=== PATIENT | male | born 1950 | race Caucasian/White ===

== ENCOUNTER 2018-01-21 14:41 | Inpatient (IN) | payer MEDICARE, OTHER ==
[~2018-01-21] VITALS: Ht 177.8 cm; Wt 84.2 kg
[~2018-01-21 14:41] MED LIST: APIX5TAB PO; ASCO100019 PO; ASPI325T80 PO; FLEC100T PO; METO25TA35 PO
[2018-01-21] MEDS ORDERED: SOTA120T26 PO (14:55)
[2018-01-21] MEDS ORDERED: ASPI325T17 PO (14:55)
[2018-01-21 16:48] LABS: BASOPHILS # (AUTO) 0.06 x10^3/uL (0-0.1); BASOPHILS % (AUTO) 1 % (0-1); EOSINOPHILS # (AUTO) 0.17 x10^3/uL (0-0.4); EOSINOPHILS % (AUTO) 2 % (1-7); LYMPHOCYTES # (AUTO) 1.43 x10^3/uL (1-3.4); LYMPHOCYTES % (AUTO) 15 % (22-44); MD NO; MEAN CORPUSCULAR HEMOGLOBIN 31.3 pg (27.5-34.5); MEAN CORPUSCULAR HGB CONC 33.7 g/dL (33.2-36.2); MEAN CORPUSCULAR VOLUME 92.7 fL (81-97); MEAN PLATELET VOLUME 8.8 fL (7.4-10.4); MONOCYTES # (AUTO) 0.55 x10^3/uL (0.2-0.8); MONOCYTES % (AUTO) 6 % (2-9); NEUTROPHILS # (AUTO) 7.16 x10^3/uL (1.8-6.8); NEUTROPHILS % (AUTO) 77 % (42-75); PLATELET COUNT 170 x10^3/uL (130-400); RED BLOOD COUNT 4.48 x10^6/uL (4.38-5.82); RED CELL DISTRIBUTION WIDTH 13.1 % (9.4-14.8)
[2018-01-21 16:54] LABS: INTERNATIONAL NORMALIZED RATIO 1.07 (0.93-1.1); PROTHROMBIN TIME 11.1 Seconds (9.6-11.5)
[2018-01-21 16:58] LABS: ALBUMIN 3.6 g/dL (3.4-5.0); ANION GAP 6 mmol/L (5-15); CALCIUM 9.6 mg/dL (8.5-10.1); CHLORIDE 109 mmol/L (98-107); CREATININE 1.15 mg/dL (0.7-1.3)
[2018-01-21] MEDS ORDERED: NS + 20MEQ KCL 1,000 ML IV SCH (17:39)
[2018-01-21] MEDS ORDERED: morphine SULFATE 10 MG/ML, 1ML IVPush PRN (18:00)
[2018-01-21] MEDS ORDERED: DOCUSATE 100 MG CAPSULE PO PRN (18:00)
[2018-01-21] MEDS ORDERED: BISACODYL 10 MG SUPP PR PRN ×2 (18:00→21:00)
[2018-01-21] MEDS ORDERED: ONDANSETRON ODT 4 MG PO PRN (18:00)
[2018-01-21] MEDS ORDERED: TRAZODONE 50MG TABLET PO PRN (18:00)
[2018-01-21] MEDS ORDERED: hydrALAzine 20 MG/ML, 1ML IVPush PRN (18:00)
[2018-01-21] MEDS ORDERED: ONDANSETRON 2MG/ML, 2ML IVPush PRN (18:00)
[2018-01-21] MEDS ORDERED: POLYETHYLENE GLYCOL 17 GM PACKET PO PRN (18:00)
[2018-01-21] MEDS ORDERED: LABETALOL 5MG/ML, 20ML IVPush PRN (18:00)
[2018-01-21] MEDS ORDERED: HYDROcodone/APAP 5/325 TABLET PO PRN ×2 (18:00→21:00)
[2018-01-21] MEDS ORDERED: MIDAZOLAM 1 MG/ML, 2ML ONE (18:02)
[2018-01-21] MEDS ORDERED: FENTANYL PF 250 MCG/5ML ONE (18:04)
[2018-01-21 18:09] LABS: FREE T4 (FREE THYROXINE) 0.85 ng/dL (0.76-1.46); THYROID STIMULATING HORMONE 0.72 mIU/L (0.358-3.740)
[2018-01-21] MEDS ORDERED: METOPROLOL 1 MG/ML, 5ML ONE (18:13)
[2018-01-21] MEDS ORDERED: PROPOFOL 10 MG/ML, 20ML ONE (18:13)
[2018-01-21] MEDS ORDERED: ROCURONIUM 10 MG/ML,10ML ONE (18:13)
[2018-01-21] MEDS ORDERED: ONDANSETRON 2MG/ML, 2ML ONE (18:13)
[2018-01-21] MEDS ORDERED: EPHEDRINE 50 MG/ML, 1ML ONE (18:13)
[2018-01-21] MEDS ORDERED: PHENYLEPHRINE 10 MG/ML ONE (18:13)
[2018-01-21] MEDS ORDERED: CEFAZOLIN 1,000 MG ONE (18:13)
[2018-01-21] MEDS ORDERED: SUCCINYLCHOLINE 20 MG/ML, 10ML ONE (18:13)
[2018-01-21] MEDS ORDERED: MEPERIDINE/PF 25MG/0.5ML IVPush PRN (19:00)
[2018-01-21] MEDS ORDERED: PROMETHAZINE 12.5 MG SUPP PR PRN (19:00)
[2018-01-21] MEDS ORDERED: hydrALAzine 20 MG/ML, 1ML IV PRN (19:00)
[2018-01-21] MEDS ORDERED: ACETAMINOPHEN 325 MG TABLET PO PRN ×2 (19:00→21:00)
[2018-01-21] MEDS ORDERED: HYDROmorphone 1 MG/ML, 1ML IV PRN ×2 (19:00→21:00)
[2018-01-21] MEDS ORDERED: LORazepam 2 MG/ML, 1ML IVPush PRN (19:00)
[2018-01-21] MEDS ORDERED: morphine SULFATE 10 MG/ML, 1ML IV PRN (19:00)
[2018-01-21] MEDS ORDERED: FENTANYL PF 100 MCG/2ML IV PRN (19:00)
[2018-01-21] MEDS ORDERED: LABETALOL 5MG/ML, 20ML IV PRN (19:00)
[2018-01-21] MEDS ORDERED: OXYcodone 5 MG/5 ML ORAL.SOL UDC PO PRN (19:00)
[2018-01-21] MEDS ORDERED: ACETAMINOPHEN 650 MG/20.3 ML UDC ONE (19:45)
[2018-01-21] MEDS ORDERED: OXYcodone 5 MG/5 ML ORAL.SOL UDC ONE (19:45)
[2018-01-21] MEDS: SODIUM CHLORIDE FLUSH 10ML SYR IVF SCH (21:00)
[2018-01-21] MEDS ORDERED: ALUMINUM/MAG/SIMETHICONE 30 ML UDC PO PRN (21:00)
[2018-01-21] MEDS ORDERED: CEFAZOLIN PMX 2GM/100ML 100 ML IVPB SCH (21:00)
[2018-01-21] MEDS ORDERED: MAGNESIUM HYDROXIDE 8%, 30ML UDC PO PRN (21:00)
[2018-01-21] MEDS ORDERED: SENNA/DOCUSATE TABLET PO PRN (21:00)
[2018-01-21] MEDS ORDERED: ONDANSETRON 2MG/ML, 2ML IV PRN (21:00)
[2018-01-21] MEDS ORDERED: DIPHENHYDRAMINE 25 MG CAPSULE PO PRN (21:00)
[2018-01-21] MEDS: D5%-LACTATED RINGERS 1,000 ML IV SCH (22:34)
[2018-01-21] MEDS: DOCUSATE 100 MG CAPSULE PO SCH (22:36)
[2018-01-21] MEDS: SOTALOL 120MG TABLET PO SCH (22:36)
[2018-01-21] MEDS: FAMOTIDINE 20 MG TABLET PO SCH (22:38)
[2018-01-22 00:33] VITALS: BP 102/69
[2018-01-22] MEDS: CEFAZOLIN PMX 2GM/50ML 50 ML IVPB SCH ×2 (01:26→10:37)
[2018-01-22 04:09] VITALS: BP 100/62
[2018-01-22] MEDS: OXYcodone/APAP 5/325MG TABLET PO PRN ×2 (04:32→19:09)
[2018-01-22 06:07] LABS: BASOPHILS # (AUTO) 0.02 x10^3/uL (0-0.1); BASOPHILS % (AUTO) 0 % (0-1); EOSINOPHILS % (AUTO) 0 % (1-7); LYMPHOCYTES # (AUTO) 1.24 x10^3/uL (1-3.4); LYMPHOCYTES % (AUTO) 15 % (22-44); MD NO; MEAN CORPUSCULAR HEMOGLOBIN 31.8 pg (27.5-34.5); MEAN CORPUSCULAR HGB CONC 34.2 g/dL (33.2-36.2); MEAN PLATELET VOLUME 8.9 fL (7.4-10.4); MONOCYTES # (AUTO) 0.61 x10^3/uL (0.2-0.8); MONOCYTES % (AUTO) 7 % (2-9); NEUTROPHILS # (AUTO) 6.68 x10^3/uL (1.8-6.8); NEUTROPHILS % (AUTO) 78 % (42-75); PLATELET COUNT 151 x10^3/uL (130-400); RED BLOOD COUNT 4.02 x10^6/uL (4.38-5.82); RED CELL DISTRIBUTION WIDTH 12.9 % (9.4-14.8)
[2018-01-22 06:14] LABS: ANION GAP 6 mmol/L (5-15); CALCIUM 8.7 mg/dL (8.5-10.1); CHLORIDE 107 mmol/L (98-107)
[2018-01-22 06:15] LABS: CREATININE 1.12 mg/dL (0.7-1.3)
[2018-01-22] MEDS: D5%-LACTATED RINGERS 1,000 ML IV SCH ×3 (07:16→23:00)
[2018-01-22 07:56] VITALS: BP 108/66
[2018-01-22] MEDS: FAMOTIDINE 20 MG TABLET PO SCH ×2 (08:25→21:13)
[2018-01-22] MEDS: SOTALOL 120MG TABLET PO SCH ×2 (08:25→21:28)
[2018-01-22] MEDS: ASPIRIN 325 MG TABLET PO SCH (08:25)
[2018-01-22] MEDS: DOCUSATE 100 MG CAPSULE PO SCH ×2 (08:26→21:14)
[2018-01-22] MEDS: SODIUM CHLORIDE FLUSH 10ML SYR IVF SCH ×2 (09:00→21:14)
[2018-01-22 13:00] VITALS: BP 93/56
[2018-01-22 18:41] VITALS: BP 118/68
[2018-01-22 18:47] LABS: BASOPHILS # (AUTO) 0.02 x10^3/uL (0-0.1); BASOPHILS % (AUTO) 0 % (0-1); EOSINOPHILS # (AUTO) 0.18 x10^3/uL (0-0.4); EOSINOPHILS % (AUTO) 2 % (1-7); LYMPHOCYTES # (AUTO) 2.36 x10^3/uL (1-3.4); LYMPHOCYTES % (AUTO) 24 % (22-44); MD NO; MEAN CORPUSCULAR HEMOGLOBIN 31.8 pg (27.5-34.5); MEAN CORPUSCULAR HGB CONC 34.1 g/dL (33.2-36.2); MEAN CORPUSCULAR VOLUME 93.5 fL (81-97); MONOCYTES # (AUTO) 0.98 x10^3/uL (0.2-0.8); MONOCYTES % (AUTO) 10 % (2-9); NEUTROPHILS # (AUTO) 6.46 x10^3/uL (1.8-6.8); NEUTROPHILS % (AUTO) 65 % (42-75); PLATELET COUNT 159 x10^3/uL (130-400); RED BLOOD COUNT 3.95 x10^6/uL (4.38-5.82); RED CELL DISTRIBUTION WIDTH 12.9 % (9.4-14.8)
[2018-01-23 00:08] VITALS: BP 102/62
[2018-01-23] MEDS: OXYcodone/APAP 5/325MG TABLET PO PRN ×2 (02:23→08:22)
[2018-01-23 05:28] LABS: ANION GAP 5 mmol/L (5-15); CALCIUM 8.5 mg/dL (8.5-10.1); CHLORIDE 108 mmol/L (98-107); CREATININE 1.25 mg/dL (0.7-1.3)
[2018-01-23] MEDS: D5%-LACTATED RINGERS 1,000 ML IV SCH (07:00)
[2018-01-23 07:41] VITALS: BP 105/61
[2018-01-23] MEDS: FAMOTIDINE 20 MG TABLET PO SCH (08:21)
[2018-01-23] MEDS: ASPIRIN 325 MG TABLET PO SCH (08:21)
[2018-01-23] MEDS: SOTALOL 120MG TABLET PO SCH (08:22)
[2018-01-23] MEDS: SODIUM CHLORIDE FLUSH 10ML SYR IVF SCH (08:22)
[2018-01-23] MEDS: DOCUSATE 100 MG CAPSULE PO SCH (08:22)
[2018-01-23] MEDS ORDERED: ACET325T14 PO (09:53)
[2018-01-23] MEDS ORDERED: LIDODERM (09:53)
[2018-01-23] MEDS ORDERED: ASPI325T17 PO (09:53)
[2018-01-23] MEDS ORDERED: PNEUMOCOCCAL 23 VACCINE IM-VACC ONE (10:00)
[2018-01-23] MEDS ORDERED: FLU VACC QS2017-18 (36MOS+) UP/PF 0.5 ML IM-VACC ONE (10:00)
== END 2018-01-23 12:25 | disposition home or self-care (01) | DRG 480 ==
LOC: ED 16:42 → EDIP 16:43 → ED 17:10 → 4NOR 20:45
PROVIDERS: ADMIT Internal Medicine; ATTEND Internal Medicine
PROC: 0QH734Z Insertion of Internal Fixation Device into Left Upper Femur, Percutaneous Approach (ICD-10-PCS; principal; 2018-01-21 18:30)
DX: S72.012A Unspecified intracapsular fracture of left femur, initial encounter for closed fracture (principal); N17.0 Acute kidney failure with tubular necrosis; I48.91 Unspecified atrial fibrillation; W50.1XXA Accidental kick by another person, initial encounter; Y93.89 Activity, other specified; Y92.89 Other specified places as the place of occurrence of the external cause; Y99.8 Other external cause status; W55.12XA Struck by horse, initial encounter
CPT/HCPCS: 36415; 71045; 72192; 76000; 80048; 82040; 84439; 84443; 85025; 85610; 90686; 90732; 93005; 99285; J0690; J2250; J2405; J2704; J3010; J0330; J2370; J7121

== ENCOUNTER 2019-12-01 09:00 | Inpatient (IN) | payer OTHER, MEDICARE ==
[~2019-12-01] VITALS: Ht 177.8 cm; Wt 74.6 kg
[~2019-12-01 09:00] MED LIST changes: +ACET325T14 PO; +ASPI325T17 PO; +LIDODERM; +SOTA120T26 PO
[2019-12-01 10:04] VITALS: BP 111/77
[2019-12-01] MEDS ORDERED: PLEASE ENTER HEIGHT AND WEIGHT MC SCH (10:30)
[2019-12-01 11:15] LABS: ANION GAP 6 mmol/L (5-15); CALCIUM 10.5 mg/dL (8.5-10.1); CHLORIDE 107 mmol/L (98-107); CHOLESTEROL, TOTAL 203 mg/dL (140-239); CREATININE 1.28 mg/dL (0.7-1.3); TRIGLYCERIDES 81 mg/dL (50-200); VLDL CHOLESTEROL 16 mg/dL (0-25)
[2019-12-01 11:25] LABS: CHOL/HDL RATIO 2.7; FREE T4 (FREE THYROXINE) 1.02 ng/dL (0.76-1.46); HDL CHOL % 36 % (26-37); HDL CHOLESTEROL (DIRECT) 74 mg/dL (40-60); LDL CHOLESTEROL,CALCULATED 113 mg/dL (54-169); LDL/HDL RATIO 1.5 (0.5-3.0)
[2019-12-01] MEDS ORDERED: APIX2.5T PO (11:42)
[2019-12-01] MEDS ORDERED: OMEG1CAP23 PO (11:42)
[2019-12-01] MEDS ORDERED: METO50TA82 PO (11:42)
[2019-12-01] MEDS ORDERED: CALC-116 PO (11:42)
[2019-12-01 14:18] VITALS: BP 110/75
[2019-12-01] MEDS ORDERED: DOFETILIDE 125 MCG CAPSULE PO SCH (14:31)
[2019-12-01 14:53] VITALS: BP 108/73
[2019-12-01] MEDS: DOFETILIDE 125 MCG CAPSULE PO SCH (15:02)
[2019-12-01 17:20] VITALS: BP 110/78
[2019-12-01] MEDS ORDERED: METOPROLOL TARTRATE 50 MG TABLET PO SCH (18:00)
[2019-12-01 19:47] VITALS: BP 105/67
[2019-12-01] MEDS: APIXABAN 5 MG TABLET PO SCH (21:28)
[2019-12-02 01:37] VITALS: BP 108/66
[2019-12-02] MEDS ORDERED: FLU VACC QS2019-20 36MOS UP/PF 0.5 ML IM-VACC ONE (03:00)
[2019-12-02] MEDS: DOFETILIDE 125 MCG CAPSULE PO SCH ×2 (03:02→16:57)
[2019-12-02 08:22] VITALS: BP 117/76
[2019-12-02] MEDS: APIXABAN 5 MG TABLET PO SCH ×2 (09:37→20:33)
[2019-12-02 13:18] VITALS: BP 117/71
[2019-12-02 19:08] VITALS: BP 131/74
[2019-12-03 01:07] VITALS: BP 114/71
[2019-12-03] MEDS: DOFETILIDE 125 MCG CAPSULE PO SCH (05:01)
[2019-12-03 07:10] VITALS: BP 127/77
[2019-12-03] MEDS ORDERED: DOFE125C PO (08:01)
[2019-12-03] MEDS ORDERED: APIX5TAB PO (08:01)
[2019-12-03] MEDS: APIXABAN 5 MG TABLET PO SCH (08:13)
== END 2019-12-03 09:15 | disposition home or self-care (01) | DRG 309 ==
LOC: 5SO 09:19 → DCLOUNGE 12-03 09:08
PROVIDERS: ADMIT Internal Medicine Cardiovascular Disease; ATTEND Internal Medicine Cardiovascular Disease
DX: I48.91 Unspecified atrial fibrillation (principal); D68.59 Other primary thrombophilia; I48.92 Unspecified atrial flutter; E78.5 Hyperlipidemia, unspecified; Z87.891 Personal history of nicotine dependence
CPT/HCPCS: 36415; 71046; 80048; 80061; 83735; 84439; 84443; 85014; 85018; 90686; 93005; G0378

== ENCOUNTER 2020-02-16 15:20 | Outpatient (CLI) | payer MEDICARE, OTHER ==
[~2020-02-16 15:20] MED LIST changes: +APIX2.5T PO; +CALC-116 PO; +DOFE125C PO; +METO50TA82 PO; +OMEG1CAP23 PO
== END 2020-02-16 23:59 | disposition home or self-care (01) ==
LOC: CFH 15:20
PROVIDERS: ATTEND Nurse Practitioner Family
DX: I48.0 Paroxysmal atrial fibrillation (principal)
CPT/HCPCS: 93306

== ENCOUNTER → 2020-04-05 | Outpatient (CLI) | payer OTHER ==
[~2020-04-05] MED LIST changes: +OMNIPAQUE 350 MG/ML, 150 ML BOTTLE ONE
== END | disposition home or self-care (01) ==
LOC: CFH 08:41
PROVIDERS: ATTEND Internal Medicine Cardiovascular Disease
DX: I48.0 Paroxysmal atrial fibrillation (principal)
CPT/HCPCS: 71046; 75572; 82565; Q9967

== ENCOUNTER 2020-04-11 08:00 | Outpatient (CLI) | payer OTHER ==
[~2020-04-11] VITALS: Ht 172.7 cm; Wt 70.9 kg
[2020-04-11 06:49] VITALS: BP 124/81
[2020-04-11 07:01] LABS: BASOPHILS # (AUTO) 0.02 x10^3/uL (0-0.1); BASOPHILS % (AUTO) 0 % (0-1); EOSINOPHILS # (AUTO) 0.21 x10^3/uL (0-0.4); EOSINOPHILS % (AUTO) 4 % (1-7); LYMPHOCYTES # (AUTO) 1.51 x10^3/uL (1-3.4); LYMPHOCYTES % (AUTO) 31 % (22-44); MD NO; MEAN CORPUSCULAR HEMOGLOBIN 32.1 pg (27.5-34.5); MEAN CORPUSCULAR HGB CONC 33.2 g/dL (33.2-36.2); MEAN CORPUSCULAR VOLUME 96.6 fL (81-97); MEAN PLATELET VOLUME 9.3 fL (7.4-10.4); MONOCYTES # (AUTO) 0.44 x10^3/uL (0.2-0.8); MONOCYTES % (AUTO) 9 % (2-9); NEUTROPHILS # (AUTO) 2.77 x10^3/uL (1.8-6.8); NEUTROPHILS % (AUTO) 56 % (42-75); PLATELET COUNT 185 x10^3/uL (130-400); RED BLOOD COUNT 4.35 x10^6/uL (4.38-5.82); RED CELL DISTRIBUTION WIDTH 13.2 % (9.4-14.8)
[2020-04-11 07:02] LABS: ANION GAP 6 mmol/L (5-15); CALCIUM 9.4 mg/dL (8.5-10.1); CHLORIDE 109 mmol/L (98-107); CREATININE 1.35 mg/dL (0.7-1.3)
[~2020-04-11 08:00] MED LIST changes: -OMNIPAQUE 350 MG/ML, 150 ML BOTTLE ONE; +SODIUM CHLORIDE 0.9% 1,000 ML IV ONE; +SODIUM CHLORIDE 0.9% 1,000 ML IV SCH
[2020-04-11] MEDS ORDERED: APIXABAN 5 MG TABLET ONE (08:09)
[2020-04-11] MEDS ORDERED: APIXABAN 5 MG TABLET PO ONE (08:30)
== END 2020-04-11 23:59 | disposition home or self-care (01) ==
LOC: EDSTATUS 08:00 → CACL 08:00
PROVIDERS: ATTEND Internal Medicine Cardiovascular Disease
DX: I48.0 Paroxysmal atrial fibrillation (principal); Z53.8 Procedure and treatment not carried out for other reasons
CPT/HCPCS: 36415; 80048; 85025

== ENCOUNTER 2020-05-17 06:06 | Observation (INO) | payer OTHER ==
[~2020-05-17] VITALS: Ht 179.1 cm; Wt 65.9 kg
[~2020-05-17 06:06] MED LIST changes: -SODIUM CHLORIDE 0.9% 1,000 ML IV ONE; -SODIUM CHLORIDE 0.9% 1,000 ML IV SCH
[2020-05-17] MEDS ORDERED: SODIUM CHLORIDE 0.9% 1,000 ML IV SCH (07:00)
[2020-05-17 07:13] LABS: BASOPHILS # (AUTO) 0.03 x10^3/uL (0-0.1); BASOPHILS % (AUTO) 1 % (0-1); EOSINOPHILS # (AUTO) 0.25 x10^3/uL (0-0.4); EOSINOPHILS % (AUTO) 5 % (1-7); LYMPHOCYTES # (AUTO) 1.21 x10^3/uL (1-3.4); LYMPHOCYTES % (AUTO) 26 % (22-44); MD NO; MEAN CORPUSCULAR HEMOGLOBIN 31.6 pg (27.5-34.5); MEAN CORPUSCULAR HGB CONC 32.7 g/dL (33.2-36.2); MEAN PLATELET VOLUME 9.1 fL (7.4-10.4); MONOCYTES # (AUTO) 0.38 x10^3/uL (0.2-0.8); MONOCYTES % (AUTO) 8 % (2-9); NEUTROPHILS # (AUTO) 2.76 x10^3/uL (1.8-6.8); NEUTROPHILS % (AUTO) 60 % (42-75); PLATELET COUNT 181 x10^3/uL (130-400); RED BLOOD COUNT 4.08 x10^6/uL (4.38-5.82); RED CELL DISTRIBUTION WIDTH 13.4 % (9.4-14.8)
[2020-05-17 07:20] VITALS: BP 120/79
[2020-05-17 07:23] LABS: ANION GAP 4 mmol/L (5-15); CALCIUM 9.8 mg/dL (8.5-10.1); CHLORIDE 110 mmol/L (98-107); CREATININE 1.48 mg/dL (0.7-1.3)
[2020-05-17] MEDS ORDERED: CHOL10003 PO (07:31)
[2020-05-17] MEDS ORDERED: PROPOFOL 50 ML ONE (08:00)
[2020-05-17] MEDS ORDERED: FENTANYL PF 250 MCG/5ML ONE (08:01)
[2020-05-17] MEDS ORDERED: MIDAZOLAM 1 MG/ML, 2ML ONE (08:01)
[2020-05-17] MEDS ORDERED: ROCURONIUM 10 MG/ML,10ML ONE (08:14)
[2020-05-17] MEDS ORDERED: HEPARIN 1,000 UNITS/ML, 10ML ONE (08:14)
[2020-05-17] MEDS ORDERED: SUCCINYLCHOLINE 20 MG/ML, 10ML ONE (08:14)
[2020-05-17] MEDS ORDERED: DEXAMETHASONE 4 MG/ML, 1ML ONE (08:14)
[2020-05-17] MEDS ORDERED: ONDANSETRON 2MG/ML, 2ML ONE (08:14)
[2020-05-17] MEDS ORDERED: LIDOCAINE 2%, 20ML ONE (08:23)
[2020-05-17] MEDS ORDERED: DIAZEPAM 5 MG/ML, 2ML IVPush PRN (08:30)
[2020-05-17] MEDS ORDERED: EPHEDRINE 50 MG/ML, 1ML IM PRN (08:30)
[2020-05-17] MEDS ORDERED: MEPERIDINE/PF 25MG/0.5ML IVPush PRN (08:30)
[2020-05-17] MEDS ORDERED: OXYcodone 5 MG/5 ML ORAL.SOL UDC PO PRN (08:30)
[2020-05-17] MEDS ORDERED: ONDANSETRON 2MG/ML, 2ML IVPush PRN (08:30)
[2020-05-17] MEDS ORDERED: ACETAMINOPHEN 325 MG TABLET PO PRN (08:30)
[2020-05-17] MEDS ORDERED: EPHEDRINE 50 MG/ML, 1ML IVPush PRN (08:30)
[2020-05-17] MEDS ORDERED: PROMETHAZINE 25 MG/ML, 1ML IVPush PRN (08:30)
[2020-05-17] MEDS ORDERED: DIPHENHYDRAMINE 50 MG/ML, 1ML IVPush PRN (08:30)
[2020-05-17] MEDS ORDERED: FENTANYL PF 100 MCG/2ML IV PRN (08:30)
[2020-05-17] MEDS ORDERED: morphine SULFATE 10 MG/ML, 1ML IVPush PRN (08:30)
[2020-05-17] MEDS ORDERED: EPHEDRINE 50 MG/ML, 1ML ONE (12:34)
[2020-05-17] MEDS ORDERED: APIXABAN 5 MG TABLET ONE (12:34)
[2020-05-17] MEDS: APIXABAN 5 MG TABLET PO SCH ×2 (12:55→20:57)
[2020-05-17] MEDS ORDERED: ACETAMINOPHEN 650 MG/20.3 ML UDC ONE (13:01)
[2020-05-17] MEDS ORDERED: ACETAMINOPHEN 325 MG TABLET ONE (13:02)
[2020-05-17 13:50] VITALS: BP 97/60
[2020-05-17] MEDS: DOFETILIDE 125 MCG CAPSULE PO SCH (16:50)
[2020-05-17 18:58] VITALS: BP 111/70
[2020-05-17 20:57] VITALS: BP 114/72
[2020-05-17] MEDS: COLCHICINE 0.6 MG CAPSULE PO SCH (20:57)
[2020-05-17] MEDS ORDERED: APIXABAN 5 MG TABLET PO SCH (21:00)
[2020-05-18 01:07] VITALS: BP 104/76
[2020-05-18 05:10] VITALS: BP 110/67
[2020-05-18] MEDS: DOFETILIDE 125 MCG CAPSULE PO SCH (05:10)
[2020-05-18 06:40] VITALS: BP 108/70
[2020-05-18] MEDS ORDERED: APIX5TAB PO (08:07)
[2020-05-18] MEDS ORDERED: COLC0.6C3 PO (08:07)
[2020-05-18] MEDS ORDERED: DOFE125C PO (08:07)
[2020-05-18] MEDS ORDERED: CALCIUM/VITAMIN D3 250-125 TABLET PO SCH (09:00)
[2020-05-18] MEDS: COLCHICINE 0.6 MG CAPSULE PO SCH (09:02)
[2020-05-18] MEDS: APIXABAN 5 MG TABLET PO SCH (09:02)
== END 2020-05-18 11:35 | disposition home or self-care (01) ==
LOC: CACL 06:06 → ORIP 11:58 → 5SO 13:32 → DCLOUNGE 05-18 11:35
PROVIDERS: ADMIT Internal Medicine Cardiovascular Disease; ATTEND Internal Medicine Cardiovascular Disease
DX: Z03.818 Encounter for observation for suspected exposure to other biological agents ruled out (principal); I48.91 Unspecified atrial fibrillation; I48.4 Atypical atrial flutter
CPT/HCPCS: 36415; 71046; 80048; 85025; 85347; 87635; 93308; 93312; 93321; 93325; 93613; 93655; 93656; 93657; 93662; C1730; C1732; C1759; C1766; C1893; C1894; G0378; J0330; J1100; J1644; J2250; J2405; J2704; J3010; J3490

== ENCOUNTER 2020-06-20 08:00 | Day surgery (SDC) | payer OTHER ==
[~2020-06-20] VITALS: Ht 172.7 cm; Wt 67.0 kg
[~2020-06-20 08:00] MED LIST changes: +CHOL10003 PO; +COLC0.6C3 PO
[2020-06-20] MEDS ORDERED: OMEG-72 PO (08:38)
[2020-06-20 08:39] VITALS: BP 119/77
[2020-06-20] MEDS ORDERED: CHOL10003 PO (08:39)
[2020-06-20 09:00] LABS: ANION GAP 3 mmol/L (5-15); CALCIUM 9.9 mg/dL (8.5-10.1); CHLORIDE 112 mmol/L (98-107)
[2020-06-20] MEDS ORDERED: SODIUM CHLORIDE FLUSH 10ML SYR IVF SCH (09:00)
[2020-06-20 09:01] LABS: CREATININE 1.36 mg/dL (0.7-1.3)
== END 2020-06-20 11:00 | disposition home or self-care (01) ==
LOC: CACL 08:00
PROVIDERS: ATTEND Internal Medicine Cardiovascular Disease
DX: I48.0 Paroxysmal atrial fibrillation (principal); I48.92 Unspecified atrial flutter; Z79.01 Long term (current) use of anticoagulants; Z79.899 Other long term (current) drug therapy
CPT/HCPCS: 36415; 80048; 92960